=== PATIENT | male | born 1990 | race Two or more races ===

== ENCOUNTER 2020-08-16 09:12 | Emergency (ER) | payer OTHER ==
[~2020-08-16] VITALS: Ht 165.1 cm; Wt 69.0 kg
[2020-08-16] MEDS ORDERED: BACITRACIN ZINC OINT UDPKT TOP ONE (10:00)
[2020-08-16 10:16] VITALS: BP 143/80
== END 2020-08-16 10:17 | disposition home or self-care (01) ==
LOC: ER 09:12
DX: S41.012A Laceration without foreign body of left shoulder, initial encounter (principal); S20.319A Abrasion of unspecified front wall of thorax, initial encounter; Z88.6 Allergy status to analgesic agent; Z85.51 Personal history of malignant neoplasm of bladder; X99.1XXA Assault by knife, initial encounter; Y07.04 Female partner, perpetrator of maltreatment and neglect; Y93.89 Activity, other specified; Y92.89 Other specified places as the place of occurrence of the external cause
CPT/HCPCS: 99283